=== PATIENT | male | born 1980 | race Two or more races ===

== ENCOUNTER 2016-06-23 21:27 | Emergency (ER) | payer OTHER ==
[~2016-06-23] VITALS: Ht 172.7 cm; Wt 72.6 kg
[2016-06-23 21:44] VITALS: BP 127/99
[2016-06-23] MEDS ORDERED: IBUPROFEN 400 MG TABLET PO ONE (22:30)
[2016-06-23] MEDS ORDERED: IBUPROFEN 400 MG TABLET ONE (22:37)
== END 2016-06-23 23:46 ==
LOC: ER 21:29
DX: R07.89 Other chest pain (principal)
CPT/HCPCS: 71010-TC; A4606; Z7610